=== PATIENT | male | born 1970 | race Two or more races ===

== ENCOUNTER 2018-12-11 17:47 | Emergency (ER) | payer BC ==
[2018-12-11 18:04] VITALS: TEMP 98.4
[2018-12-11] MEDS ORDERED: SODIUM CHLORIDE 0.9% 1,000 ML IV STA (18:34)
--- NOTE | 2018-12-11 19:00 | ED ---
General Adult HPI - General Chief complaint: Recheck/Abnormal Lab/Rx Stated complaint: Hyperglycemia Time Seen by Provider: 12/11/18 18:27 Source: patient, RN notes reviewed, old records reviewed Mode of arrival: ambulatory Limitations: no limitations - History of Present Illness Initial comments: 48-year-old male patient with new diagnosis of diabetes approximately one week ago presents to ED with hyperglycemia. Patient reports that he has had elevated blood sugars between 300-450 the last 3 days. Patient is currently taking 500 mg metformin daily and Prandin 30 minutes before meals. Pt denies all other complaints. Systemic: Pt denies fatigue, myalgia, fever/chills, rash. Pt denies weakness, night sweats, weight loss. Neuro: Pt denies headache, visual disturbances, syncope or pre-syncope. HEENT: Pt denies ocular discharge or irritation, otalgia, rhinorrhea, pharyngitis or notable lymphadenopathy. Cardiopulmonary: Pt denies chest pain, SOB, heart palpitations, dyspnea on exertion. Abdominal/GI: Pt denies abdominal pain, n/v/d. : Pt denies dysuria, burning w/ urination, frequency/urgency. Denies new onset urinary or bowel incontinence. MSK: Pt denies myalgia, loss of strength or function in extremities. Neuro: Pt denies new onset weakness, paresthesias. - Related Data Allergies Allergy/AdvReac Type Severity Reaction Status Date / Time aspirin Allergy Unknown Verified 12/11/18 18:05 Review of Systems ROS Statement: Those systems with pertinent positive or pertinent negative responses have been documented in the HPI. ROS Other: All systems not noted in ROS Statement are negative. Past Medical History Past Medical History: Diabetes Mellitus History of Any Multi-Drug Resistant Organisms: None Reported Past Surgical History: Cholecystectomy Past Psychological History: No Psychological Hx Reported Smoking Status: Never smoker Past Alcohol Use History: None Reported Past Drug Use History: None Reported General Exam - General Exam Comments Initial Comments: Constitutional: NAD, AOX3, Pt has pleasant affect. HEENT: NC/AT, trachea midline, neck supple, no lymphadenopathy. Posterior pharynx non erythematous, without exudates. External ears appear normal, without discharge. Mucous membranes moist. Eyes PERRLA, EOM intact. There is no scleral icterus. No pallor noted. Cardiopulmonary: RRR, no murmurs, rubs or gallops, no JVD noted. Lungs CTAB in anterior and posterior schmitz. No peripheral edema. Abdominal exam: Abdomen soft and non-distended. Abdomen non-tender to palpation in all 4 quadrants. Bowel sounds active in LLQ. No hepatosplenomegaly. No ecchymosis Neuro: CN II-XII grossly intact. No nuchal rigidity. MSK: No posterior calf tenderness bilaterally, homans sign negative bilaterally. Posterior tibialis and radial pulse +2 bilaterally. Sensation intact in upper and lower extremities. Full active ROM in upper and lower extremities, 5/5 stregnth. Limitations: no limitations Course Vital Signs 12/11/18 12/11/18 18:01 20:47 Temperature 98.4 F Pulse Rate 101 H 90 Respiratory 18 18 Rate Blood Pressure 127/83 126/87 O2 Sat by Pulse 99 98 Oximetry Medical Decision Making - Medical Decision Making 48-year-old male patient with new diagnosis of diabetes approximately one week ago presents to ED with hyperglycemia. Patient reports that he has had elevated blood sugars between 300-450 the last 3 days. Patient is currently taking 500 mg metformin daily and Prandin 30 minutes before meals. Pt denies all other complaints. Patient vital signs stable, afebrile. Physical exam did not display acute pathology. Laboratory investigations revealed non-impressive CBC. CMP revealed mild hyponatremia. Mildly increased creatinine of 1.72. Glucose was elevated 452. UA revealed +4 glucose and +2 ketones. Anion gap within normal limits. Carbon dioxide within normal limits. Acetone negative. Patient ministered 1.5 L of normal saline. Patient ministered 6 units of subcu insulin. Patient glucose decreased to 303. Patient ministered another 3 units of subcu insulin. Patient to be discharged. Patient to follow up with primary care provider in 1-2 days for continued evaluation of kidney function and hyperglycemia/glucose control. Patient to return to ED if descends symptoms develop or condition worsens in any way. Case discussed with Dr. Maldonado. - Lab Data Result diagrams: 12/11/18 19:03 12/11/18 19:03 Lab Results 12/11/18 12/11/18 12/11/18 Range/Units 19:03 19:03 19:24 WBC 7.6 (3.8-10.6) k/uL RBC 5.54 (4.30-5.90) m/uL Hgb 16.8 (13.0-17.5) gm/dL Hct 49.1 (39.0-53.0) % MCV 88.6 (80.0-100.0) fL MCH 30.3 (25.0-35.0) pg MCHC 34.2 (31.0-37.0) g/dL RDW 12.8 (11.5-15.5) % Plt Count 168 (150-450) k/uL Neutrophils % 62 % Lymphocytes % 26 % Monocytes % 6 % Eosinophils % 3 % Basophils % 1 % Neutrophils # 4.7 (1.3-7.7) k/uL Lymphocytes # 2.0 (1.0-4.8) k/uL Monocytes # 0.5 (0-1.0) k/uL Eosinophils # 0.2 (0-0.7) k/uL Basophils # 0.1 (0-0.2) k/uL Sodium 136 L (137-145) mmol/L Potassium 4.9 (3.5-5.1) mmol/L Chloride 98 (98-107) mmol/L Carbon Dioxide 26 (22-30) mmol/L Anion Gap 12 mmol/L BUN 19 (9-20) mg/dL Creatinine 1.72 H (0.66-1.25) mg/dL Est GFR (CKD-EPI)AfAm 53 (>60 ml/min/1.73 sqM) Est GFR (CKD-EPI)NonAf 46 (>60 ml/min/1.73 sqM) Glucose 452 H (74-99) mg/dL POC Glucose (mg/dL) (75-99) mg/dL POC Glu Automatic Car [employer] Attendant ID Calcium 9.7 (8.4-10.2) mg/dL Total Bilirubin 0.5 (0.2-1.3) mg/dL AST 37 (17-59) U/L ALT 67 (21-72) U/L Alkaline Phosphatase 112 (38-126) U/L Total Protein 7.6 (6.3-8.2) g/dL Albumin 4.4 (3.5-5.0) g/dL Urine Color Light Yellow Urine Appearance Clear (Clear) Urine pH 5.0 (5.0-8.0) Ur Specific Halma 1.036 H (1.001-1.035) Urine Protein Negative (Negative) Urine Glucose (UA) 4+ H (Negative) Urine Ketones 2+ H (Negative) Urine Blood Negative (Negative) Urine Nitrite Negative (Negative) Urine Bilirubin Negative (Negative) Urine Urobilinogen <2.0 (<2.0) mg/dL Ur Leukocyte Esterase Negative (Negative) Acetone, Qual Negative (Negative) 12/11/18 12/11/18 Range/Units 20:13 21:51 WBC (3.8-10.6) k/uL RBC (4.30-5.90) m/uL Hgb (13.0-17.5) gm/dL Hct (39.0-53.0) % MCV (80.0-100.0) fL MCH (25.0-35.0) pg MCHC (31.0-37.0) g/dL RDW (11.5-15.5) % Plt Count (150-450) k/uL Neutrophils % % Lymphocytes % % Monocytes % % Eosinophils % % Basophils % % Neutrophils # (1.3-7.7) k/uL Lymphocytes # (1.0-4.8) k/uL Monocytes # (0-1.0) k/uL Eosinophils # (0-0.7) k/uL Basophils # (0-0.2) k/uL Sodium (137-145) mmol/L Potassium (3.5-5.1) mmol/L Chloride (98-107) mmol/L Carbon Dioxide (22-30) mmol/L Anion Gap mmol/L BUN (9-20) mg/dL Creatinine (0.66-1.25) mg/dL Est GFR (CKD-EPI)AfAm (>60 ml/min/1.73 sqM) Est GFR (CKD-EPI)NonAf (>60 ml/min/1.73 sqM) Glucose (74-99) mg/dL POC Glucose (mg/dL) 432 H 303 H (75-99) mg/dL POC Glu Automatic [employer] Attendant ID Breanne Willby Nano Richardson Calcium (8.4-10.2) mg/dL Total Bilirubin (0.2-1.3) mg/dL AST (17-59) U/L ALT (21-72) U/L Alkaline Phosphatase (38-126) U/L Total Protein (6.3-8.2) g/dL Albumin (3.5-5.0) g/dL Urine Color Urine Appearance (Clear) Urine pH (5.0-8.0) Ur Specific Halma (1.001-1.035) Urine Protein (Negative) Urine Glucose (UA) (Negative) Urine Ketones (Negative) Urine Blood (Negative) Urine Nitrite (Negative) Urine Bilirubin (Negative) Urine Urobilinogen (<2.0) mg/dL Ur Leukocyte Esterase (Negative) Acetone, Qual (Negative) Disposition Clinical Impression: Hyperglycemia Disposition: HOME SELF-CARE Condition: Stable Instructions (If sedation given, give patient instructions): Diabetic Hyperglycemia (ED), Diabetes and Exercise (ED) Additional Instructions: Patient to adhere to previously discussed treatment plan and will take medication(s) as directed. Patient to follow up with PCP in 1-2 days. Patient to return to ED if symptoms do not improve. Follow-up with primary care provider in 1-2 days for continued evaluation of elevated blood sugar and mildly decreased kidney function. If sugar is above 300 tomorrow night may take additional metformin pill. Return to ER if condition worsens in anyway. Is patient prescribed a controlled substance at d/c from ED?: No Referrals: Niranjan Neville MD [Primary Care Provider] - 1-2 days
[2018-12-11 19:25] LABS: ALT 67 U/L (21-72); AST 37 U/L (17-59); Albumin 4.4 g/dL (3.5-5.0); Alkaline Phosphatase 112 U/L (38-126); Anion Gap 12 mmol/L; Blood Urea Nitrogen 19 mg/dL (9-20); Calcium 9.7 mg/dL (8.4-10.2); Carbon Dioxide 26 mmol/L (22-30); Chloride 98 mmol/L (98-107); Glucose 452 mg/dL (74-99); Potassium 4.9 mmol/L (3.5-5.1); Sodium 136 mmol/L (137-145); Total Bilirubin 0.5 mg/dL (0.2-1.3); Total Protein 7.6 g/dL (6.3-8.2)
[2018-12-11 19:26] LABS: Basophils # (A) 0.1 k/uL (0-0.2); Basophils % (A) 1 %; Eosinophils # (A) 0.2 k/uL (0-0.7); Eosinophils % (A) 3 %; HCT 49.1 % (39.0-53.0); HGB 16.8 gm/dL (13.0-17.5); Lymphocytes % (A) 26 %; MCH 30.3 pg (25.0-35.0); MCHC 34.2 g/dL (31.0-37.0); MCV 88.6 fL (80.0-100.0); Mean Platelet Volume 11.9; Monocytes # (A) 0.5 k/uL (0-1.0); Monocytes % (A) 6 %; Neutrophils # (A) 4.7 k/uL (1.3-7.7); Neutrophils % (A) 62 %; Platelet Count 168 k/uL (150-450); RBC 5.54 m/uL (4.30-5.90); RDW 12.8 % (11.5-15.5); WBC 7.6 k/uL (3.8-10.6)
[2018-12-11] MEDS ORDERED: INSULIN ASPART (NovoLOG) 100 UNIT/ML VIAL SQ ONE ×3 (19:49→22:11)
[2018-12-11] MEDS ORDERED: SODIUM CHLORIDE 0.9% 500 ML 500 ML IV STA (19:51)
[2018-12-11 19:52] LABS: Appearance,Urine Clear (Clear); Bilirubin,Urine Negative (Negative); Blood,Urine Negative (Negative); Color,Urine Light Yellow; Glucose,Urine (UA) 4+ (Negative); Leukocyte Esterase,Urine Negative (Negative); Nitrite,Urine Negative (Negative); Protein,Urine Negative (Negative); Specific Gravity,Urine 1.036 (1.001-1.035); Urobilinogen,Urine <2.0 mg/dL (<2.0)
[2018-12-11 19:55] LABS: Ketones,Urine 2+ (Negative)
[2018-12-11 20:14] LABS: Glucose,Whole Blood 432 mg/dL (75-99)
[2018-12-11 21:52] LABS: Glucose,Whole Blood 303 mg/dL (75-99)
[2018-12-11 23:20] VITALS: BP 108/84; PULSE 79; RESP 12
== END 2018-12-11 23:23 | disposition home or self-care (01) ==
LOC: EC 17:47
DX: E11.65 Type 2 diabetes mellitus with hyperglycemia (principal); E87.1 Hypo-osmolality and hyponatremia; Z88.6 Allergy status to analgesic agent
CPT/HCPCS: 36415; 80053; 81003; 82009; 85025; 96360; 96361; 99284

== ENCOUNTER 2021-07-12 06:26 | Emergency (ER) | payer BC ==
--- NOTE | 2021-07-12 06:45 | ED ---
SOB HPI - General Chief Complaint: Shortness of Breath Stated Complaint: BOLIVAR, Covid+ Time Seen by Provider: 07/12/21 06:32 Source: patient, RN notes reviewed Mode of arrival: ambulatory Limitations: no limitations - History of Present Illness Initial Comments: Patient is a 51-year-old male presenting to the ED for shortness of breath. Patient states that on Thursday tested positive for COVID-19, reports being ill for 8-9 days. Patient reports increased feeling of general weakness, body aches, fatigue, on and off fevers and chills over the past few days. Also reporting anxiety over not being able to catch breath. Patient reports still a good appetite and able to keep down fluids with no nausea and vomiting. Shortness of breath has increased becoming hard to breathe and with fast rate of breath over the last 2 days. Patient has past medical history of diabetes and states that has not been vaccinated. - Related Data Home Medications Medication Instructions Recorded Confirmed Dulaglutide [Trulicity] 1.5 mg SQ FR 07/12/21 07/12/21 Allergies Allergy/AdvReac Type Severity Reaction Status Date / Time aspirin Allergy Unknown Verified 07/12/21 08:30 Review of Systems ROS Statement: Those systems with pertinent positive or pertinent negative responses have been documented in the HPI. ROS Other: All systems not noted in ROS Statement are negative. Past Medical History Past Medical History: Diabetes Mellitus History of Any Multi-Drug Resistant Organisms: None Reported Past Surgical History: Cholecystectomy Past Psychological History: No Psychological Hx Reported Smoking Status: Never smoker Past Alcohol Use History: None Reported Past Drug Use History: None Reported General Exam Limitations: no limitations General appearance: alert, anxious Respiratory exam: Present: normal lung sounds bilaterally, respiratory distress (Tachypenia). Absent: wheezes, rales, rhonchi, stridor Cardiovascular Exam: Present: normal rhythm, tachycardia, normal heart sounds. Absent: systolic murmur, diastolic murmur, rubs, gallop, clicks Neurological exam: Present: alert, oriented X3 Psychiatric exam: Present: normal affect, normal mood Skin exam: Present: warm, dry, intact, normal color. Absent: rash Course Vital Signs 07/12/21 07/12/21 07/12/21 06:28 06:32 07:16 Temperature 98.9 F Pulse Rate 114 H 94 93 Respiratory 36 H 28 H Rate Blood Pressure 125/71 122/70 O2 Sat by Pulse 100 98 98 Oximetry 07/12/21 07/12/21 07/12/21 07:17 08:11 10:00 Temperature 100.2 F H Pulse Rate 94 Respiratory 30 H 24 38 H Rate Blood Pressure 133/89 O2 Sat by Pulse 99 Oximetry 07/12/21 07/12/21 07/12/21 10:09 12:18 13:03 Temperature 99 F Pulse Rate 85 95 95 Respiratory 24 18 18 Rate Blood Pressure 129/80 118/78 116/60 O2 Sat by Pulse 95 96 93 L Oximetry 07/12/21 14:14 Temperature Pulse Rate 80 Respiratory 18 Rate Blood Pressure 100/47 O2 Sat by Pulse 95 Oximetry Medical Decision Making - Medical Decision Making Patient is covered father. Patient did receive multiple antibodies patient was tachypneic, tachycardic there is no evidence of PE. Patient be discharged stable condition. - Lab Data Result diagrams: 07/12/21 07:00 07/12/21 07:00 Lab Results 07/12/21 07/12/21 07/12/21 Range/Units 07:00 07:00 08:08 WBC 5.2 (3.8-10.6) k/uL RBC 5.31 (4.30-5.90) m/uL Hgb 16.1 (13.0-17.5) gm/dL Hct 46.9 (39.0-53.0) % MCV 88.3 (80.0-100.0) fL MCH 30.3 (25.0-35.0) pg MCHC 34.4 (31.0-37.0) g/dL RDW 13.2 (11.5-15.5) % Plt Count 124 L (150-450) k/uL MPV 10.9 Neutrophils % 65 % Lymphocytes % 26 % Monocytes % 7 % Eosinophils % 0 % Basophils % 1 % Neutrophils # 3.4 (1.3-7.7) k/uL Lymphocytes # 1.4 (1.0-4.8) k/uL Monocytes # 0.4 (0-1.0) k/uL Eosinophils # 0.0 (0-0.7) k/uL Basophils # 0.0 (0-0.2) k/uL D-Dimer 0.74 H (<0.60) mg/L FEU Sodium 139 (137-145) mmol/L Potassium 4.0 (3.5-5.1) mmol/L Chloride 107 (98-107) mmol/L Carbon Dioxide 18 L (22-30) mmol/L Anion Gap 14 mmol/L BUN 14 (9-20) mg/dL Creatinine 1.14 (0.66-1.25) mg/dL Est GFR (CKD-EPI)AfAm 86 (>60 ml/min/1.73 sqM) Est GFR (CKD-EPI)NonAf 74 (>60 ml/min/1.73 sqM) Glucose 153 H (74-99) mg/dL Calcium 8.7 (8.4-10.2) mg/dL Total Bilirubin 0.9 (0.2-1.3) mg/dL AST 54 (17-59) U/L ALT 48 (4-49) U/L Alkaline Phosphatase 134 H (38-126) U/L Total Protein 6.9 (6.3-8.2) g/dL Albumin 3.8 (3.5-5.0) g/dL Disposition Clinical Impression: COVID-19 Disposition: HOME SELF-CARE Condition: Stable Instructions (If sedation given, give patient instructions): Coronavirus Disease 2019 (COVID-19) Additional Instructions: Please return to the Emergency Department if symptoms worsen or any other conc erns. Is patient prescribed a controlled substance at d/c from ED?: No Referrals: Vinnie Altamirano MD [Primary Care Provider] - 1-2 days Time of Disposition: 15:13
[2021-07-12] MEDS ORDERED: SODIUM CHLORIDE 0.9% 1,000 ML IV STA (06:49)
[2021-07-12] MEDS ORDERED: LORazepam 2 MG/ML INJ IV STA ×2 (06:54→09:38)
[2021-07-12 07:11] LABS: Basophils % (A) 1 %; Eosinophils % (A) 0 %; HCT 46.9 % (39.0-53.0); HGB 16.1 gm/dL (13.0-17.5); Lymphocytes # (A) 1.4 k/uL (1.0-4.8); Lymphocytes % (A) 26 %; MCH 30.3 pg (25.0-35.0); MCHC 34.4 g/dL (31.0-37.0); MCV 88.3 fL (80.0-100.0); Mean Platelet Volume 10.9; Monocytes # (A) 0.4 k/uL (0-1.0); Monocytes % (A) 7 %; Neutrophils # (A) 3.4 k/uL (1.3-7.7); Neutrophils % (A) 65 %; Platelet Count 124 k/uL (150-450); RBC 5.31 m/uL (4.30-5.90); RDW 13.2 % (11.5-15.5); WBC 5.2 k/uL (3.8-10.6)
[2021-07-12 07:35] LABS: Albumin 3.8 g/dL (3.5-5.0); Calcium 8.7 mg/dL (8.4-10.2); Total Bilirubin 0.9 mg/dL (0.2-1.3); Total Protein 6.9 g/dL (6.3-8.2)
[2021-07-12] MEDS ORDERED: guaiFENesin-Coden 100-10MG/5ML 10 ML CUP PO STA (07:50)
--- NOTE | 2021-07-12 07:52 | XR ---
EXAMINATION TYPE: XR chest 2V DATE OF EXAM: 07/12/2021 COMPARISON: NONE TECHNIQUE: PA and lateral views submitted. HISTORY: Shortness of breath FINDINGS: There are bilateral patchy infiltrates. Heart size normal with no pleural effusion or pneumothorax. H ypertrophic change of the spine. Surgical clips in the abdomen. IMPRESSION: 1. Patchy bilateral infiltrate correlate for multifocal pneumonia. Nodule in the right upper lobe not excluded follow to resolution.
[2021-07-12] MEDS ORDERED: ACETAMINOPHEN TAB 500 MG TAB PO STA (09:16)
--- NOTE | 2021-07-12 10:08 | CT ---
EXAMINATION TYPE: CT chest angio for PE DATE OF EXAM: 07/12/2021 COMPARISON: None HISTORY: shortness of breath, covid + CT DLP: 592.9 mGycm Automated exposure control for dose reduction was used. CONTRAST: CT Chest for pulmonary embolism performed with with IV Contrast, patient injected with 100 mL of Isov ue 370. FINDINGS: LUNGS: Diffuse groundglass infiltrates are seen with more multifocal areas of localized consolidation compatible with pneumonia. No pleural effusion or pneumothorax. MEDIASTINUM: There is possible enhancement of the pulmonary artery and its branches. There are no gr eater than 1 cm hilar or mediastinal lymph nodes. No pericardial effusion is seen. OTHER: Hypertrophic and degenerative changes of the spine. IMPRESSION: 1. Diffuse bilateral infiltrates compatible with multifocal pneumonia. 2. Suboptimal enhancement of the pulmonary arteries. Could not exclude a secondary or distal pulmonar y embolism. Given the limitations of the exam consider VQ scan.
[2021-07-12] MEDS ORDERED: SODIUM CHLORIDE 0.9% 50 ML IVPB ONE (12:15)
[2021-07-12] MEDS ORDERED: CASIRIVIMAB/IMDEVIMAB (EUA) 1,200 MG in SODIUM CHLORIDE 0.9% 100 ML IVPB ONE (12:15)
[2021-07-12 12:19] VITALS: RESP 18
--- NOTE | 2021-07-12 14:56 | NM ---
EXAMINATION TYPE: NM pul perfusion DATE OF EXAM: 07/12/2021 COMPARISON: CT angiogram of the chest 07/12/2021, chest x-ray 07/12/2021 HISTORY: Shortness of breath, pneumonia Following administration of 5 mCi Tc 99m MAA. Images obtained post injection. FINDINGS: There is essentially homogenous uptake of radiopharmaceutical on perfusion imaging within the lungs. Small subsegmental peripheral focus of decreased uptake noted in the left upper lobe laterally is lik freddie a matched defect. IMPRESSION: Low probability for pulmonary embolism
[2021-07-12 16:22] VITALS: BP 116/81; PULSE 88; TEMP 100.1
== END 2021-07-12 16:22 | disposition home or self-care (01) ==
LOC: EC 06:26
DX: U07.1 COVID-19 (principal); E11.9 Type 2 diabetes mellitus without complications; Z90.49 Acquired absence of other specified parts of digestive tract
CPT/HCPCS: 99285; 96365; 96375; 96376; 96361; 36415; 85379; 80053; 85025; 71046; 71275; 78580; A9540; J2060; Q9967; Q0243

== ENCOUNTER 2021-07-13 10:21 | Emergency (ER) | payer BC ==
[2021-07-13 11:04] LABS: Glucose,Whole Blood 143 mg/dL (75-99)
[2021-07-13 11:06] VITALS: TEMP 98.5
[2021-07-13] MEDS ORDERED: ACETAMINOPHEN TAB 500 MG TAB PO STA (12:17)
[2021-07-13] MEDS ORDERED: ALBUTEROL HFA INHALER INHALATION STA (12:17)
[2021-07-13] MEDS ORDERED: SODIUM CHLORIDE 0.9% 1,000 ML IV STA (12:24)
--- NOTE | 2021-07-13 12:48 | ED ---
General Adult HPI - General Chief complaint: Upper Respiratory Infection Stated complaint: revisit/Covid+/sob/low o2 Time Seen by Provider: 07/13/21 11:50 Source: patient, RN notes reviewed, old records reviewed Mode of arrival: wheelchair Limitations: no limitations - History of Present Illness Initial comments: 51-year-old male with a history of 90s of respiratory cough symptoms shortness of breath was diagnosed with Coban on Thursday. He was in emergency department yesterday had evaluation. Patient reports that he seems to be getting worse and complains of worsening shortness of breath. Patient has not had any recent Motrin or Tylenol. - Related Data Home Medications Medication Instructions Recorded Confirmed Dulaglutide [Trulicity] 1.5 mg SQ FR 07/12/21 07/13/21 Previous Rx's Medication Instructions Recorded Albuterol Inhaler [Ventolin Hfa 1 puff INHALATION RT-QID #8 gm 07/13/21 Inhaler] Allergies Allergy/AdvReac Type Severity Reaction Status Date / Time aspirin Allergy Unknown Verified 07/13/21 14:32 Review of Systems ROS Statement: Those systems with pertinent positive or pertinent negative responses have been documented in the HPI. ROS Other: All systems not noted in ROS Statement are negative. Past Medical History Past Medical History: Diabetes Mellitus Additional Past Medical History / Comment(s): covid History of Any Multi-Drug Resistant Organisms: None Reported Past Surgical History: Cholecystectomy Past Psychological History: No Psychological Hx Reported Smoking Status: Never smoker Past Alcohol Use History: None Reported Past Drug Use History: None Reported General Exam - General Exam Comments Initial Comments: 51 year old male, no acute distress. Fatigued. Laying in stretcher. Limitations: no limitations Head exam: Present: atraumatic, normocephalic, normal inspection Eye exam: Present: normal appearance, PERRL, EOMI. Absent: scleral icterus, conjunctival injection, periorbital swelling ENT exam: Present: normal exam, mucous membranes moist Neck exam: Present: normal inspection. Absent: tenderness, meningismus, ly mphadenopathy Respiratory exam: Present: normal lung sounds bilaterally. Absent: respiratory distress, wheezes, rales, rhonchi, stridor Cardiovascular Exam: Present: regular rate, normal rhythm, normal heart sounds. Absent: systolic murmur, diastolic murmur, rubs, gallop, clicks GI/Abdominal exam: Present: soft, normal bowel sounds. Absent: distended, tenderness, guarding, rebound, rigid Extremities exam: Present: normal inspection, full ROM, normal capillary refill. Absent: tenderness, pedal edema, joint swelling, calf tenderness Back exam: Present: normal inspection Neurological exam: Present: alert, oriented X3, CN II-XII intact Psychiatric exam: Present: normal affect, normal mood Skin exam: Present: warm, dry, intact, normal color. Absent: rash Course Vital Signs 07/13/21 07/13/21 07/13/21 11:03 13:35 14:51 Temperature 98.5 F Pulse Rate 100 87 92 Respiratory 22 20 20 Rate Blood Pressure 105/74 131/79 131/76 O2 Sat by Pulse 95 95 97 Oximetry EKG Findings - EKG Comments: EKG Findings:: EKG shows normal sinus rhythm T-wave abnormality considering anterior ischemia. Abnormal EKG. Ventricular rate of 90 beats were minute. Verbal 138 ms. QRS duration is 94 ms. QT QTc is 350/457 ms. Medical Decision Making - Medical Decision Making [id number] male with a history of COVID-19 infection with symptoms starting 9 days ago shortness of breath fever fatigue. Patient was evaluated yesterday in emergency Department or see monoclonal antibodies. Patient also had CT chest angiogram chest negative for PE as well as a VQ scan. Patient reports that he was feeling worse today and complained of continued intermittent shortness of breath. Patient's chest x-ray continues to show patchy pneumonia infiltrates. His oxygenation has been 95-97% on room air and with ambulation. He was given albuterol inhaler treatment. Patient labs show evidence of transaminitis likely related to viral infection. He has no right upper quadrant tenderness. Patient will be discharged at this time with instructions to have supportive measures including Motrin Tylenol as well as using inhaler. Advised to up with primary care physician as well. All questions answered and return primary's were discussed. - Lab Data Result diagrams: 07/13/21 13:18 07/13/21 13:18 Lab Results 07/13/21 07/13/21 07/13/21 Range/Units 11:02 13:18 13:18 WBC 6.6 (3.8-10.6) k/uL RBC 5.19 (4.30-5.90) m/uL Hgb 16.1 (13.0-17.5) gm/dL Hct 46.1 (39.0-53.0) % MCV 88.8 (80.0-100.0) fL MCH 31.0 (25.0-35.0) pg MCHC 34.9 (31.0-37.0) g/dL RDW 13.4 (11.5-15.5) % Plt Count 141 L (150-450) k/uL MPV 10.9 Neutrophils % 70 % Lymphocytes % 20 % Monocytes % 8 % Eosinophils % 0 % Basophils % 0 % Neutrophils # 4.6 (1.3-7.7) k/uL Lymphocytes # 1.3 (1.0-4.8) k/uL Monocytes # 0.5 (0-1.0) k/uL Eosinophils # 0.0 (0-0.7) k/uL Basophils # 0.0 (0-0.2) k/uL PT 10.4 (9.0-12.0) sec INR 1.0 (<1.2) APTT 25.3 (22.0-30.0) sec Sodium (137-145) mmol/L Potassium (3.5-5.1) mmol/L Chloride (98-107) mmol/L Carbon Dioxide (22-30) mmol/L Anion Gap mmol/L BUN (9-20) mg/dL Creatinine (0.66-1.25) mg/dL Est GFR (CKD-EPI)AfAm (>60 ml/min/1.73 sqM) Est GFR (CKD-EPI)NonAf (>60 ml/min/1.73 sqM) Glucose (74-99) mg/dL POC Glucose (mg/dL) 143 H (75-99) mg/dL POC Glu Cattle Dealer ID Casie Madrigal Plasma Lactic Acid Guerrero (0.7-2.0) mmol/L Calcium (8.4-10.2) mg/dL Magnesium (1.6-2.3) mg/dL Total Bilirubin (0.2-1.3) mg/dL AST (17-59) U/L ALT (4-49) U/L Alkaline Phosphatase (38-126) U/L Lactate Dehydrogenase (313-618) U/L C-Reactive Protein (<1.0) mg/dL Total Protein (6.3-8.2) g/dL Albumin (3.5-5.0) g/dL 07/13/21 07/13/21 Range/Units 13:18 13:18 WBC (3.8-10.6) k/uL RBC (4.30-5.90) m/uL Hgb (13.0-17.5) gm/dL Hct (39.0-53.0) % MCV (80.0-100.0) fL MCH (25.0-35.0) pg MCHC (31.0-37.0) g/dL RDW (11.5-15.5) % Plt Count (150-450) k/uL MPV Neutrophils % % Lymphocytes % % Monocytes % % Eosinophils % % Basophils % % Neutrophils # (1.3-7.7) k/uL Lymphocytes # (1.0-4.8) k/uL Monocytes # (0-1.0) k/uL Eosinophils # (0-0.7) k/uL Basophils # (0-0.2) k/uL PT (9.0-12.0) sec INR (<1.2) APTT (22.0-30.0) sec Sodium 136 L (137-145) mmol/L Potassium 4.3 (3.5-5.1) mmol/L Chloride 105 (98-107) mmol/L Carbon Dioxide 21 L (22-30) mmol/L Anion Gap 10 mmol/L BUN 15 (9-20) mg/dL Creatinine 0.96 (0.66-1.25) mg/dL Est GFR (CKD-EPI)AfAm >90 (>60 ml/min/1.73 sqM) Est GFR (CKD-EPI)NonAf >90 (>60 ml/min/1.73 sqM) Glucose 120 H (74-99) mg/dL POC Glucose (mg/dL) (75-99) mg/dL POC Glu Cattle Dealer ID Plasma Lactic Acid Guerrero 1.3 (0.7-2.0) mmol/L Calcium 8.6 (8.4-10.2) mg/dL Magnesium 2.1 (1.6-2.3) mg/dL Total Bilirubin 1.0 (0.2-1.3) mg/dL AST 206 H (17-59) U/L ALT 228 H (4-49) U/L Alkaline Phosphatase 259 H (38-126) U/L Lactate Dehydrogenase 1487 H (313-618) U/L C-Reactive Protein 5.6 H (<1.0) mg/dL Total Protein 6.9 (6.3-8.2) g/dL Albumin 3.7 (3.5-5.0) g/dL - Radiology Data Radiology results: report reviewed She was alert and significant anemia did seen and better on the right. Cardiac he is sinusitis stable. Elevation of right hemidiaphragm. No evident pneumothorax. Some peripheral vague densities are present on for limits. Bones are stable. Findings consistent with patient's history of pneumonia. Disposition Clinical Impression: COVID-19, Transaminitis Disposition: HOME SELF-CARE Condition: Good Instructions (If sedation given, give patient instructions): Coronavirus Disease 2019 (COVID-19) Additional Instructions: Alternate Motrin Tylenol every 4-6 hours. Using inhaler as directed. Monitor pulse ox with ambulation. Follow up with PCP. Take Vitamin C, D, and Zinc. Prescriptions: Albuterol Inhaler [Ventolin Hfa Inhaler] 1 puff INHALATION RT-QID #8 gm Is patient prescribed a controlled substance at d/c from ED?: No Referrals: Vinnie Altamirano MD [Primary Care Provider] - 1-2 days Time of Disposition: 14:54
--- NOTE | 2021-07-13 13:22 | XR ---
EXAMINATION TYPE: XR chest 1V portable DATE OF EXAM: 07/13/2021 COMPARISON: Chest x-ray 07/12/2021 HISTORY: Suspected Covid 19 pneumonia TECHNIQUE: Single frontal view of the chest is obtained. FINDINGS: Patchy basilar density is again noted seen better on the right. Cardiac mediastinal site i s stable. There is elevation of right hemidiaphragm. No evident pneumothorax. Some peripheral vague d ensities are present in the upper lobes. Bones are stable IMPRESSION: Findings consistent with patient's history of pneumonia
[2021-07-13 13:35] LABS: Basophils % (A) 0 %; Eosinophils % (A) 0 %; HCT 46.1 % (39.0-53.0); HGB 16.1 gm/dL (13.0-17.5); Lymphocytes # (A) 1.3 k/uL (1.0-4.8); Lymphocytes % (A) 20 %; MCHC 34.9 g/dL (31.0-37.0); MCV 88.8 fL (80.0-100.0); Mean Platelet Volume 10.9; Monocytes # (A) 0.5 k/uL (0-1.0); Monocytes % (A) 8 %; Neutrophils # (A) 4.6 k/uL (1.3-7.7); Neutrophils % (A) 70 %; Platelet Count 141 k/uL (150-450); RBC 5.19 m/uL (4.30-5.90); RDW 13.4 % (11.5-15.5); WBC 6.6 k/uL (3.8-10.6)
[2021-07-13 13:48] LABS: Partial Thromboplastin Time 25.3 sec (22.0-30.0); Prothrombin Time 10.4 sec (9.0-12.0)
[2021-07-13 13:50] LABS: ALT 228 U/L (4-49); African American GFR (CKD) >90 (>60 ml/min/1.73 sqM); Albumin 3.7 g/dL (3.5-5.0); Anion Gap 10 mmol/L; Blood Urea Nitrogen 15 mg/dL (9-20); C Reactive Protein 5.6 mg/dL (<1.0); Calcium 8.6 mg/dL (8.4-10.2); Carbon Dioxide 21 mmol/L (22-30); Chloride 105 mmol/L (98-107); Glucose 120 mg/dL (74-99); Non-African American GFR(CKD) >90 (>60 ml/min/1.73 sqM); Sodium 136 mmol/L (137-145); Total Protein 6.9 g/dL (6.3-8.2)
[2021-07-13 13:56] LABS: AST 206 U/L (17-59); Alkaline Phosphatase 259 U/L (38-126); LDH 1487 U/L (313-618); Magnesium 2.1 mg/dL (1.6-2.3); Potassium 4.3 mmol/L (3.5-5.1)
[2021-07-13 14:32] VITALS: RESP 20
[2021-07-13 14:53] VITALS: BP 131/76; PULSE 92
== END 2021-07-13 15:25 | disposition home or self-care (01) ==
LOC: EC 10:21
DX: U07.1 COVID-19 (principal); J12.82 Pneumonia due to coronavirus disease 2019; R74.01 Elevation of levels of liver transaminase levels; E11.9 Type 2 diabetes mellitus without complications; Z90.49 Acquired absence of other specified parts of digestive tract
CPT/HCPCS: 36415; 71045; 80053; 82728; 83605; 83615; 83735; 84145; 85025; 85610; 85730; 86140; 87040; 93005; 94640; 96360; 96361; 99285

== ENCOUNTER 2024-04-22 19:32 | Emergency (ER) | payer BC ==
[2024-04-22 19:48] VITALS: TEMP 98
--- NOTE | 2024-04-22 20:26 | ED ---
Back Pain HPI - General Chief Complaint: Back Pain/Injury Stated Complaint: back pain Time Seen by Provider: 04/22/24 20:24 Source: patient, RN notes reviewed Limitations: no limitations - History of Present Illness Initial Comments: 54-year-old male presenting for low back pain x 1 week that is worsening. States he golfed 3 days in a row last weekend and has had increasing, sharp, stabbing pain in his lower back since then with radiation down into his right buttocks. He is having trouble ambulating due to pain. States pain is worse with movement. He admits some numbness in his right leg however denies weakness. Denies loss of bowel or bladder control. - Related Data Home Medications Medication Instructions Recorded Confirmed Dulaglutide [Trulicity] 1.5 mg SQ FR 07/12/21 07/13/21 Previous Rx's Medication Instructions Recorded Albuterol Inhaler [Ventolin Hfa 1 puff INHALATION RT-QID #8 gm 07/13/21 Inhaler] Cyclobenzaprine [Flexeril] 10 mg PO TID PRN #15 tab 04/22/24 Lidocaine 5% Patch [Lidoderm 5% 1 patch TOPICAL DAILY 7 Days #7 04/22/24 Patch] patch Allergies Allergy/AdvReac Type Severity Reaction Status Date / Time aspirin Allergy Unknown Verified 04/22/24 19:48 Review of Systems ROS Statement: Those systems with pertinent positive or pertinent negative responses have been documented in the HPI. ROS Other: All systems not noted in ROS Statement are negative. Past Medical History Past Medical History: Diabetes Mellitus Additional Past Medical History / Comment(s): covid History of Any Multi-Drug Resistant Organisms: None Reported Past Surgical History: Cholecystectomy Past Psychological History: No Psychological Hx Reported Smoking Status: Never smoker Past Alcohol Use History: None Reported Past Drug Use History: None Reported General Exam Limitations: no limitations General appearance: alert, in no apparent distress Head exam: Present: atraumatic, normocephalic, normal inspection GI/Abdominal exam: Present: soft, normal bowel sounds. Absent: distended, tenderness, guarding, rebound, rigid Back exam: Present: normal inspection, full ROM, other (Full strength and range of motion of bilateral hips. No saddle anesthesia. Full sensation, dorsalis pedis pulses, and cap refill less than 2 seconds in lower extremities bilaterally). Absent: tenderness, CVA tenderness (R), CVA tenderness (L) Neurological exam: Present: alert, oriented X3 Psychiatric exam: Present: normal affect, normal mood Skin exam: Present: warm, dry, intact, normal color. Absent: rash Course Vital Signs 04/22/24 19:46 Temperature 98 F Pulse Rate 83 Respiratory 18 Rate Blood Pressure 145/83 O2 Sat by Pulse 97 Oximetry Medical Decision Making - Medical Decision Making Was pt. sent in by a medical professional or institution (, [facility], ASSOCIATE PROFESSOR OF MUSIC, urgent care, hospital, or fpc...) When possible be specific @ -No Did you speak to anyone other than the patient for history (EMS, parent, family, police, friend...)? What history was obtained from this source @ -Patient's supplemented history Did you review nursing and triage notes (agree or disagree)? Why? @ -I reviewed and agree with nursing and triage notes Were old charts reviewed (outside hosp., previous admission, EMS record, old EKG, old radiological studies, urgent care reports/EKG's, fpc records)? Report findings @ -No old charts were reviewed Differential Diagnosis (chest pain, altered mental status, abdominal pain women, abdominal pain men, vaginal bleeding, weakness, fever, dyspnea, syncope, headache, dizziness, GI bleed, back pain, seizure, CVA, palpatations, mental health, musculoskeletal)? @ -Differential Musculoskeletal Muscular strain, contusion, ligament sprain, fracture, arthritis, septic arthritis, bursitis, cellulitis, muscle spasm, nerve compression, DVT, arterial occlusion, herpes zoster, electrolyte abnormality, tumor.... This is not meant to be in all inclusive list EKG interpreted by me (3pts min.). @ -None X-rays interpreted by me (1pt min.). @ -X-ray of lumbar spine revealed no acute fracture, moderate multilevel disc degeneration CT interpreted by me (1pt min.). @ -None done U/S interpreted by me (1pt. min.). @ -None done What testing was considered but not performed or refused? (CT, X-rays, U/S, labs)? Why? @ -None What meds were considered but not given or refused? Why? @ -None Did you discuss the management of the patient with other professionals (professionals i.e. , [facility], [employer]OCIATE PROF[employer], lab, RT, psych nurse, psychotherapist social worker, drill press operator, teacher, data officer, oil field caser)? Give summary @ -No Was smoking cessation discussed for >3mins.? @ -No Was critical care preformed (if so, how long)? @ -No Were there social determinants of health that impacted care today? How? (Homelessness, low income, unemployed, alcoholism, drug addiction, transportation, low edu. Level, literacy, decrease access to med. care, shelter, rehab)? @ -No Was there de-escalation of care discussed even if they declined (Discuss DNR or withdrawal of care, Hospice)? DNR status @ -No What co-morbidities impacted this encounter? (DM, HTN, Smoking, COPD, CAD, Cancer, CVA, ARF, Chemo, Hep., AIDS, mental health diagnosis, sleep apnea, morbid obesity)? @ -None Was patient admitted / discharged? Hospital course, mention meds given and rout e, prescriptions, significant lab abnormalities, going to OR and other pertinent info. @ -Patient was discharged. Patient was seen and evaluated for low back pain x 1 week after golf. No red flag symptoms. Patient is neurovascularly intact. Patient is given IM Dexa and IM Norflex for pain. X-ray reveals no acute fracture, moderate multilevel disc degeneration. Upon reevaluation, patient states symptoms are slightly improved. Discussed diagnosis of low back strain with patient. Supportive care discussed. Strict return parameters discussed with patient and he shows understanding and agrees to plan. Prescribed lidocaine patches and Flexeril. Case was discussed with my ED attending Dr. Mancera. Patient discharged in stable condition. Undiagnosed new problem with uncertain prognosis? @ -No Drug Therapy requiring intensive monitoring for toxicity (Heparin, Nitro, Insulin, Cardizem)? @ -No Were any procedures done? @ -No Diagnosis/symptom? @ -Low back strain Acute, or Chronic, or Acute on Chronic? @ -Acute Uncomplicated (without systemic symptoms) or Complicated (systemic symptoms)? @ -Uncomplicated Side effects of treatment? @ -No Exacerbation, Progression, or Severe Exacerbation? @ -No Poses a threat to life or bodily function? How? (Chest pain, [place], [place], pneumonia, PE, COPD, DKA, ARF, appy, cholecystitis, CVA, Diverticulitis, Homicidal, Suicidal, threat to staff... and all critical care pts) @ -No Disposition Clinical Impression: Low back strain Disposition: HOME SELF-CARE Condition: Stable Instructions (If sedation given, give patient instructions): Acute Low Back Pain (ED) Additional Instructions: Please return to the Emergency Department if symptoms worsen or any other concerns. Prescriptions: Cyclobenzaprine [Flexeril] 10 mg PO TID PRN #15 tab PRN Reason: Muscle Spasm Lidocaine 5% Patch [Lidoderm 5% Patch] 1 patch TOPICAL DAILY 7 Days #7 patch Is patient prescribed a controlled substance at d/c from ED?: No Referrals: Vinnie Altamirano MD [Primary Care Provider] - 1-2 days Time of Disposition: 21:39
[2024-04-22] MEDS: DEXAMETHASONE SOD PHOSPHATE 10 MG/ML 1 ML VIAL IM STA (20:40)
[2024-04-22] MEDS: ORPHENADRINE 30 MG/ML 2 ML VIAL IM STA (20:40)
--- NOTE | 2024-04-22 20:53 | XR ---
EXAMINATION TYPE: XR lumbar spine 2 or 3V DATE OF EXAM: 04/22/2024 8:35 PM CLINICAL INDICATION:Male, 54 years old with history of low back pain COMPARISON: None TECHNIQUE: XR lumbar spine 2 or 3V - Frontal, lateral and coned in L5-S1 lateral views of the spine. FINDINGS: No evidence of any acute osseous pathology. No evidence of loss of vertebral body height i s seen. There is normal alignment of the lumbar vertebral bodies. Scattered disc space narrowing. Mul tilevel marginal osteophyte formation throughout the visualized spine. There is facet joint arthropat hy throughout the spine. Scattered at least mild neural foraminal stenosis. IMPRESSION: 1. No acute fracture. 2. Moderate multilevel disc degeneration.
[2024-04-22 21:50] VITALS: BP 114/81; PULSE 80; RESP 16
== END 2024-04-22 21:46 | disposition home or self-care (01) ==
LOC: EC 19:32
DX: S39.012A Strain of muscle, fascia and tendon of lower back, initial encounter (principal); Z88.6 Allergy status to analgesic agent; X58.XXXA Exposure to other specified factors, initial encounter; Y93.53 Activity, golf
CPT/HCPCS: 72100; 99283; 96372 ×2; J1100; J2360